=== PATIENT | male | born 1950 | race Caucasian/White ===

== ENCOUNTER → 2017-03-06 | Outpatient (CLI) | payer MEDICARE ==
[2017-03-06 13:02] LABS: Rheumatoid Factor, Qnt <9 IU/mL (<12)
[2017-03-06 16:14] LABS: Treponemal Ab Non-Reactive (Non-Reactive)
[2017-03-06 17:18] LABS: ANA w/Reflex to Titer NEGATIVE (NEGATIVE)
[2017-03-07 03:33] LABS: Lyme Antibodies Total(IgG/IgM) 0.06 (<0.90)
== END | disposition home or self-care (01) ==
LOC: LABWHC1 11:13
PROVIDERS: ATTEND Otolaryngology
DX: L65.9 Nonscarring hair loss, unspecified (principal); R53.83 Other fatigue
CPT/HCPCS: 36415; 82164; 84443; 86038; 86431; 86618; 86780

== ENCOUNTER → 2017-03-19 | Outpatient (CLI) | payer MEDICARE ==
[2017-03-19 07:17] LABS: Non-African American GFR(MDRD) 53 (>60 ml/min/1.73 sqM)
--- NOTE | 2017-03-19 08:57 | MR ---
EXAMINATION TYPE: MR brain and iac wo/w con DATE OF EXAM: 03/19/2017 7:58 AM COMPARISON: NONE HISTORY: Hearing loss TECHNIQUE: Multiplanar and multispin-echo imaging of the brain was performed both before and after the administr ation of contrast. High-resolution images are obtained of the internal auditory canals performed uti lizing 18 mL intravenous MultiHance contrast. The ventricles, basal cisterns and sulci overlying the cerebral convexities are within normal limits. There is no evidence for midline shift or mass effect. Acute intracranial hemorrhage or extra-axial collection is not evident. Nonenhancing cystic lesion high left frontal lobe measuring 6.6 mm. High-resolution imaging of the internal auditory canals fails demonstrate evidence for an enhancing a coustic schwannoma or cerebellopontine cistern angle mass. Following contrast administration, there is no evidence for pathologic enhancement or enhancing mass. Chronic paranasal sinusitis. Mastoid air cells are well-aerated. IMPRESSION: 1. No evidence of acoustic schwannoma or cerebellopontine angle mass.
== END | disposition home or self-care (01) ==
LOC: RADMRIMAIN 06:42
PROVIDERS: ATTEND Otolaryngology
DX: H93.3X9 Disorders of unspecified acoustic nerve (principal); H91.90 Unspecified hearing loss, unspecified ear
CPT/HCPCS: 82565; 70553; A9577

== ENCOUNTER → 2017-07-27 | Outpatient (CLI) | payer MEDICARE ==
[2017-07-27 09:09] LABS: Basophils % (A) 1 %; CH 32.3; CHCM 34.6; Eosinophils # (A) 0.2 k/uL (0-0.7); Eosinophils % (A) 4 %; HDW 2.75; HGB 15.8 gm/dL (13.0-17.5); Luc # (Auto) 0.14; Luc % (Auto) 3; Lymphocytes # (A) 1.6 k/uL (1.0-4.8); Lymphocytes % (A) 30 %; MCH 30.8 pg (25.0-35.0); MCHC 32.9 g/dL (31.0-37.0); MCV 93.5 fL (80.0-100.0); Mean Platelet Volume 7.8; Monocytes # (A) 0.4 k/uL (0-1.0); Monocytes % (A) 7 %; Neutrophils % (A) 56 %; RBC 5.13 m/uL (4.30-5.90); RDW 13.8 % (11.5-15.5); WBC 5.4 k/uL (3.8-10.6); WBC (Perox) 5.18
[2017-07-27 09:38] LABS: ALT 46 U/L (21-72); AST 28 U/L (17-59); Alkaline Phosphatase 43 U/L (38-126); Anion Gap 12 mmol/L; Blood Urea Nitrogen 22 mg/dL (9-20); Calcium 9.3 mg/dL (8.4-10.2); Carbon Dioxide 22 mmol/L (22-30); Chloride 107 mmol/L (98-107); Cholesterol 161 mg/dL (<200); Glucose 146 mg/dL (74-99); HDL Cholesterol 43 mg/dL (40-60); Non-African American GFR(MDRD) 55 (>60 ml/min/1.73 sqM); Potassium 4.6 mmol/L (3.5-5.1); Sodium 141 mmol/L (137-145); Total Bilirubin 0.8 mg/dL (0.2-1.3); Total Protein 7.1 g/dL (6.3-8.2)
== END | disposition home or self-care (01) ==
LOC: LABWHC1 08:30
PROVIDERS: ATTEND Internal Medicine
DX: E78.2 Mixed hyperlipidemia (principal); I10 Essential (primary) hypertension; Z12.5 Encounter for screening for malignant neoplasm of prostate
CPT/HCPCS: 80061; 80053; 85025; 36415; G0103

== ENCOUNTER → 2018-03-01 | Outpatient (CLI) | payer MEDICARE ==
--- NOTE | 2018-03-01 12:56 | US ---
EXAMINATION TYPE: US venous doppler duplex UE RT DATE OF EXAM: 03/01/2018 COMPARISON: NONE CLINICAL HISTORY: R22.31 SWELLING OF RT UPPER LIMB. rt hand numbness, no previous dvt SIDE PERFORMED: right Results called to Ilda in the office at the time of the exam. Right Arm: Negative for DVT Grayscale, color doppler, spectral doppler imaging performed of the deep veins of the right upper ext remity. There is normal flow, compressibility and vascular waveforms. IMPRESSION: No sonographic evidence of deep venous thrombosis within the right upper extremity.
== END | disposition home or self-care (01) ==
LOC: RADUSWWP 11:37
PROVIDERS: ATTEND Internal Medicine
DX: R22.31 Localized swelling, mass and lump, right upper limb (principal)

== ENCOUNTER → 2018-03-22 | Outpatient (CLI) | payer MEDICARE ==
[2018-03-22 10:56] LABS: Appearance,Urine Clear (Clear); Basophils % (A) 1 %; Bilirubin,Urine Negative (Negative); Blood,Urine Negative (Negative); Color,Urine Yellow; Eosinophils # (A) 0.2 k/uL (0-0.7); Eosinophils % (A) 2 %; Glucose,Urine (UA) Negative (Negative); HCT 41.3 % (39.0-53.0); HGB 14.1 gm/dL (13.0-17.5); Ketones,Urine Negative (Negative); Leukocyte Esterase,Urine Negative (Negative); Lymphocytes # (A) 1.4 k/uL (1.0-4.8); Lymphocytes % (A) 16 %; MCH 30.5 pg (25.0-35.0); MCHC 34.2 g/dL (31.0-37.0); MCV 89.2 fL (80.0-100.0); Mean Platelet Volume 7.1; Monocytes # (A) 0.5 k/uL (0-1.0); Monocytes % (A) 6 %; Neutrophils # (A) 6.5 k/uL (1.3-7.7); Neutrophils % (A) 75 %; Nitrite,Urine Negative (Negative); PH, Urine 5.5 (5.0-8.0); Platelet Count 199 k/uL (150-450); Protein,Urine Negative (Negative); RBC 4.63 m/uL (4.30-5.90); RDW 13.3 % (11.5-15.5); Specific Gravity,Urine 1.015 (1.001-1.035); Urobilinogen,Urine <2.0 mg/dL (<2.0); WBC 8.7 k/uL (3.8-10.6)
[2018-03-22 11:17] LABS: C Reactive Protein 58.2 mg/L (<10.0); Calcium 9.4 mg/dL (8.4-10.2); Phosphorus 3.6 mg/dL (2.5-4.5); Potassium 4.4 mmol/L (3.5-5.1); Total Bilirubin 0.6 mg/dL (0.2-1.3); Total Protein 6.7 g/dL (6.3-8.2)
[2018-03-22 11:31] LABS: T4, Free (Free Thyroxine) 0.99 ng/dL (0.78-2.19)
[2018-03-22 13:04] LABS: Erythrocyte Sedimentation Rate 69 mm/hr (0-15)
[2018-03-22 16:17] LABS: Rheumatoid Factor 8 IU/mL (0-15); Streptolysin O Ab(ASO) 84 IU/mL (0-200)
[2018-03-22 16:25] LABS: Parathyroid Hormone Intact 31.4 pg/mL (14.0-72.0)
[2018-03-22 16:26] LABS: Vitamin D 25 Hydroxy 35.2 ng/mL (30.0-100.0)
[2018-03-22 17:03] LABS: Hepatitis C IgG Antibody Non-Reactive (Non-Reactive)
[2018-03-22 17:31] LABS: Cyclic Citrullinated Pep IgG NEGATIVE (NEGATIVE)
[2018-03-22 18:42] LABS: Hemoglobin A1C 6.4 % (4.0-6.0)
[2018-03-23 06:12] LABS: Angiotensin-1 Converting Enz. 15 U/L (8-52)
[2018-03-23 13:45] LABS: HLA B27 NEGATIVE
[2018-03-25 11:10] LABS: Albumin 3.75 g/dL (3.80-4.90); Gamma Globulin 0.92 g/dL (0.70-1.50); Protein, Total 6.8 g/dL (6.2-8.2)
[2018-03-25 15:21] LABS: Hepatits C Virus RNA Not detected (Not detected); Hepatits C Virus RNA, Quant <12 IU/mL (<12); LOG HCV IU/mL <1.08 (<1.08)
[2018-03-25 17:43] LABS: Vitamin D, 1, 25-Dihydroxy 60 pg/mL (20 - 79)
[2018-03-26 07:57] LABS: Vitamin B1 76 ug/L (38-122)
[2018-03-26 09:47] LABS: Lyme IgG/IgM 0.1 Index
== END | disposition home or self-care (01) ==
LOC: LABWHC1 09:59
PROVIDERS: ATTEND Physical Medicine & Rehabilitation
DX: M51.26 Other intervertebral disc displacement, lumbar region (principal); M51.17 Intervertebral disc disorders with radiculopathy, lumbosacral region; M47.817 Spondylosis without myelopathy or radiculopathy, lumbosacral region; M16.11 Unilateral primary osteoarthritis, right hip; M54.2 Cervicalgia; M25.511 Pain in right shoulder; M25.512 Pain in left shoulder
CPT/HCPCS: 36415; 80053; 81003; 82164; 82306; 82310; 82550; 82553; 82607; 82652; 83036; 83516; 83615; 83970; 84100; 84165; 84207; 84425; 84439; 84443; 84550; 85025; 85652; 86038; 86060; 86140; 86200; 86235; 86431; 86618; 86803; 86812; 87522

== ENCOUNTER 2018-05-13 15:18 | Inpatient (IN) | payer MEDICARE ==
[2018-05-13] MEDS ORDERED: SODIUM CHLORIDE 0.9% 1,000 ML IV STA (16:56)
[2018-05-13] MEDS ORDERED: SODIUM CHLORIDE 0.9% 500 ML IV STA ×2 (16:56→18:36)
[2018-05-13 17:14] LABS: Basophils % (A) 0 %; Eosinophils % (A) 0 %; HCT 48.8 % (39.0-53.0); HGB 15.5 gm/dL (13.0-17.5); Lymphocytes # (A) 0.8 k/uL (1.0-4.8); Lymphocytes % (A) 7 %; MCH 28.5 pg (25.0-35.0); MCHC 31.8 g/dL (31.0-37.0); MCV 89.5 fL (80.0-100.0); Mean Platelet Volume 7.9; Monocytes # (A) 0.4 k/uL (0-1.0); Monocytes % (A) 4 %; Neutrophils # (A) 9.9 k/uL (1.3-7.7); Neutrophils % (A) 88 %; Platelet Count 240 k/uL (150-450); RBC 5.46 m/uL (4.30-5.90); RDW 14.4 % (11.5-15.5); WBC 11.2 k/uL (3.8-10.6)
--- NOTE | 2018-05-13 17:22 | ED ---
General Adult HPI - General Chief complaint: Recheck/Abnormal Lab/Rx Stated complaint: High blood sugar-sent by Time Seen by Provider: 05/13/18 16:39 Source: family, RN notes reviewed, old records reviewed Mode of arrival: ambulatory Limitations: no limitations - History of Present Illness Initial comments: This is a 60-year-old male the ER for evaluation today. States presenting for evaluation regards to significantly abnormal lab tests. Significantly elevated blood sugar. Patient has no real significant medical history aside from high blood pressure. Recently diagnosed with myalgia and arthralgia probably myalgia. Patient is had decreased strength decreased activity level. Patient' s been on outpatient steroids for about 3 weeks now. Per symptoms, his pain did improve but his blood sugar is not significantly clinically elevated. Patient continues to feel weak and very thirsty - Related Data Home Medications Medication Instructions Recorded Confirmed Aspirin EC [Ecotrin Low Dose] 81 mg PO DAILY 05/13/18 05/13/18 Gabapentin (Unknown Dose) 1 tab PO DAILY 05/13/18 Losartan (Unknown Dose) 1 tab PO DAILY 05/13/18 predniSONE See Taper PO DIRECTED 05/13/18 05/13/18 Allergies Allergy/AdvReac Type Severity Reaction Status Date / Time Sulfa (Sulfonamide Allergy Rash/Hives Verified 05/13/18 17:44 Antibiotics) Review of Systems ROS Statement: Those systems with pertinent positive or pertinent negative responses have been documented in the HPI. ROS Other: All systems not noted in ROS Statement are negative. Past Medical History Past Medical History: Hypertension History of Any Multi-Drug Resistant Organisms: None Reported Past Surgical History: No Surgical Hx Reported Past Psychological History: No Psychological Hx Reported Smoking Status: Never smoker Past Alcohol Use History: None Reported Past Drug Use History: None Reported General Exam Limitations: no limitations General appearance: alert, in no apparent distress Head exam: Present: atraumatic, normocephalic, normal inspection Eye exam: Present: normal appearance, PERRL, EOMI. Absent: scleral icterus, conjunctival injection, periorbital swelling ENT exam: Present: normal exam, mucous membranes moist Neck exam: Present: normal inspection. Absent: tenderness, meningismus, lymphadenopathy Respiratory exam: Present: normal lung sounds bilaterally. Absent: respiratory distress, wheezes, rales, rhonchi, stridor Cardiovascular Exam: Present: regular rate, normal rhythm, normal heart sounds. Absent: systolic murmur, diastolic murmur, rubs, gallop, clicks GI/Abdominal exam: Present: soft, normal bowel sounds. Absent: distended, tenderness, guarding, rebound, rigid Extremities exam: Present: normal inspection, full ROM, normal capillary refill. Absent: tenderness, pedal edema, joint swelling, calf tenderness Back exam: Present: normal inspection Neurological exam: Present: alert, oriented X3, CN II-XII intact Psychiatric exam: Present: normal affect, normal mood Skin exam: Present: warm, dry, intact, normal color. Absent: rash Course Vital Signs 05/13/18 16:00 Temperature 97.8 F Pulse Rate 96 Respiratory 18 Rate Blood Pressure 96/64 O2 Sat by Pulse 98 Oximetry - Reevaluation(s) Reevaluation #1: 05/13/18 17:57 Medical record and prior lab values are reviewed EKG Findings - EKG Comments: EKG Findings:: EKG shows normal sinus rhythm rate of 74, MA 136, QRS 86, QTc 432 Medical Decision Making - Medical Decision Making 68 male the ER for evaluation of weakness, patient's found to be significantly dehydrated with elevated blood sugar. Patient be admitted for rehydration evaluation of hyperglycemia and treatment, patient also continue to have treatment of high blood sugar, patient currently on steroids for treatment of polymyalgia arthralgia - Lab Data Result diagrams: 05/13/18 17:03 05/13/18 17:03 Lab Results 05/13/18 05/13/18 05/13/18 Range/Units 17:03 17:03 17:03 WBC 11.2 H (3.8-10.6) k/uL RBC 5.46 (4.30-5.90) m/uL Hgb 15.5 (13.0-17.5) gm/dL Hct 48.8 (39.0-53.0) % MCV 89.5 (80.0-100.0) fL MCH 28.5 (25.0-35.0) pg MCHC 31.8 (31.0-37.0) g/dL RDW 14.4 (11.5-15.5) % Plt Count 240 (150-450) k/uL Neutrophils % 88 % Lymphocytes % 7 % Monocytes % 4 % Eosinophils % 0 % Basophils % 0 % Neutrophils # 9.9 H (1.3-7.7) k/uL Lymphocytes # 0.8 L (1.0-4.8) k/uL Monocytes # 0.4 (0-1.0) k/uL Eosinophils # 0.0 (0-0.7) k/uL Basophils # 0.0 (0-0.2) k/uL Sodium 131 L (137-145) mmol/L Potassium 5.8 H (3.5-5.1) mmol/L Chloride 92 L (98-107) mmol/L Carbon Dioxide 20 L (22-30) mmol/L Anion Gap 19 mmol/L BUN 42 H (9-20) mg/dL Creatinine 1.54 H (0.66-1.25) mg/dL Est GFR (CKD-EPI)AfAm 53 (>60 ml/min/1.73 sqM) Est GFR (CKD-EPI)NonAf 46 (>60 ml/min/1.73 sqM) Glucose 679 H* (74-99) mg/dL Calcium 9.6 (8.4-10.2) mg/dL Phosphorus 4.8 H (2.5-4.5) mg/dL Magnesium 2.5 H (1.6-2.3) mg/dL Total Bilirubin 1.0 (0.2-1.3) mg/dL AST 14 L (17-59) U/L ALT 43 (21-72) U/L Alkaline Phosphatase 57 (38-126) U/L Total Creatine Kinase (55-170) U/L CK-MB (CK-2) (0.0-2.4) ng/mL CK-MB (CK-2) Rel Index Troponin I (0.000-0.034) ng/mL C-Reactive Protein 19.3 H (<10.0) mg/L Total Protein 5.9 L (6.3-8.2) g/dL Albumin 3.7 (3.5-5.0) g/dL TSH 1.960 (0.465-4.680) mIU/L Acetone, Qual Positive (Negative) 05/13/18 Range/Units 17:03 WBC (3.8-10.6) k/uL RBC (4.30-5.90) m/uL Hgb (13.0-17.5) gm/dL Hct (39.0-53.0) % MCV (80.0-100.0) fL MCH (25.0-35.0) pg MCHC (31.0-37.0) g/dL RDW (11.5-15.5) % Plt Count (150-450) k/uL Neutrophils % % Lymphocytes % % Monocytes % % Eosinophils % % Basophils % % Neutrophils # (1.3-7.7) k/uL Lymphocytes # (1.0-4.8) k/uL Monocytes # (0-1.0) k/uL Eosinophils # (0-0.7) k/uL Basophils # (0-0.2) k/uL Sodium (137-145) mmol/L Potassium (3.5-5.1) mmol/L Chloride (98-107) mmol/L Carbon Dioxide (22-30) mmol/L Anion Gap mmol/L BUN (9-20) mg/dL Creatinine (0.66-1.25) mg/dL Est GFR (CKD-EPI)AfAm (>60 ml/min/1.73 sqM) Est GFR (CKD-EPI)NonAf (>60 ml/min/1.73 sqM) Glucose (74-99) mg/dL Calcium (8.4-10.2) mg/dL Phosphorus (2.5-4.5) mg/dL Magnesium (1.6-2.3) mg/dL Total Bilirubin (0.2-1.3) mg/dL AST (17-59) U/L ALT (21-72) U/L Alkaline Phosphatase (38-126) U/L Total Creatine Kinase 34 L (55-170) U/L CK-MB (CK-2) 1.5 (0.0-2.4) ng/mL CK-MB (CK-2) Rel Index 4.4 Troponin I <0.012 (0.000-0.034) ng/mL C-Reactive Protein (<10.0) mg/L Total Protein (6.3-8.2) g/dL Albumin (3.5-5.0) g/dL TSH (0.465-4.680) mIU/L Acetone, Qual (Negative) Disposition Clinical Impression: Hyperglycemia, Weakness, Polyarthralgia Disposition: ADMITTED IP TO THIS [facility] Condition: Good Is patient prescribed a controlled substance at d/c from ED?: No Referrals: Andrew Grimes MD [Primary Care Provider] - 1-2 days
[2018-05-13 17:24] LABS: ALT 43 U/L (21-72); AST 14 U/L (17-59); Albumin 3.7 g/dL (3.5-5.0); Alkaline Phosphatase 57 U/L (38-126); Anion Gap 19 mmol/L; Blood Urea Nitrogen 42 mg/dL (9-20); Calcium 9.6 mg/dL (8.4-10.2); Carbon Dioxide 20 mmol/L (22-30); Chloride 92 mmol/L (98-107); Magnesium 2.5 mg/dL (1.6-2.3); Phosphorus 4.8 mg/dL (2.5-4.5); Potassium 5.8 mmol/L (3.5-5.1); Sodium 131 mmol/L (137-145); Total Protein 5.9 g/dL (6.3-8.2)
[2018-05-13 17:35] LABS: Glucose 679 mg/dL (74-99)
[2018-05-13 17:57] LABS: C Reactive Protein 19.3 mg/L (<10.0)
[2018-05-13 17:58] LABS: Creatine Kinase 34 U/L (55-170)
[2018-05-13 18:11] LABS: Creatine Kinase MB 1.5 ng/mL (0.0-2.4); Troponin I <0.012 ng/mL (0.000-0.034)
[2018-05-13] MEDS ORDERED: INSULIN REGULAR 100 UNIT/ML VIAL SQ ONE (18:36)
[2018-05-13] MEDS ORDERED: INSULIN REGULAR 100 UNIT/ML VIAL IV ONE (18:36)
[2018-05-13] MEDS ORDERED: SODIUM CHLORIDE 0.9% 1,000 ML IV ONE (18:36)
[2018-05-13 19:19] LABS: Appearance,Urine Clear (Clear); Bilirubin,Urine Negative (Negative); Blood,Urine Negative (Negative); Color,Urine Colorless; Glucose,Urine (UA) 4+ (Negative); Leukocyte Esterase,Urine Negative (Negative); Nitrite,Urine Negative (Negative); Protein,Urine Negative (Negative); Specific Gravity,Urine 1.023 (1.001-1.035); Urobilinogen,Urine <2.0 mg/dL (<2.0)
[2018-05-13 19:24] LABS: Glucose,Whole Blood 483 mg/dL (75-99)
[2018-05-13 19:36] VITALS: BMI 26.7
[2018-05-13 19:38] LABS: Ketones,Urine 2+ (Negative)
[2018-05-13] MEDS ORDERED: Potassium Replacement Protocol 1 EACH MISC MISCELLANE PRN (20:10)
[2018-05-13] MEDS ORDERED: Magnesium Replacement Protocol 1 EACH MISC MISCELLANE PRN (20:10)
[2018-05-13] MEDS ORDERED: INSULIN REGULAR BOLUS (FROM DRIP BAG) IV ONE (20:10)
[2018-05-13] MEDS ORDERED: NALOXONE 0.4 MG/ML 1 ML VIAL IV PRN (20:14)
[2018-05-13 20:24] LABS: Glucose,Whole Blood 505 mg/dL (75-99)
--- NOTE | 2018-05-13 20:47 | P.HPIM ---
History of Present Illness H&P Date: 05/13/18 Chief Complaint: Generalized weakness, polydipsia , polyuria 68-year-old male with past medical history of hypertension. Patient presented to the hospital due to 3 weeks history of generalized weakness , fatigue, polydipsia and polyuria. Patient denies any history of diabetes mellitus. However he's been struggling with stiff shoulder and joint pain. He's been receiving steroid shots in his joints. And due to poor outcomes his doctor has started him on prednisone 5 weeks ago. He was on 30 mg daily for 2 weeks and then dropped to 25 mg daily for 2 weeks and currently for the past few days he is on 20 mg daily. It seems like his symptoms correlates with the starting of prednisone. Today he was following up with his primary care physician who up on doing further testing found to have elevated blood sugar around 800 and recommended that he goes to the hospital to the emergency department for further management. Patient otherwise denies any vomiting fevers or chills headache changes in his vision or hearing denies any chest pain or trouble breathing denies any abdominal pain changes in his bowel habits or urinary habits. But he does feel nauseated most of the time. He's been drinking a lot of water to keep hydrated. In the emergency department she was found to have elevated blood sugar with anion gap and ketones in the urine but his bicarb was only mildly acidotic at around 20. Patient admitted for further care Review of Systems Pertinent positives as noted in HPI. All other systems were reviewed and are negative Patient denies any symptoms suggestive of acute infection Past Medical History Past Medical History: Hypertension Additional Past Medical History / Comment(s): Arthritis History of Any Multi-Drug Resistant Organisms: None Reported Past Surgical History: No Surgical Hx Reported Past Psychological History: No Psychological Hx Reported Smoking Status: Never smoker Past Alcohol Use History: None Reported Past Drug Use History: None Reported - Past Family History Family Additional Family Medical History / Comment(s): Patient is adopted and doesn't know his family history Medications and Allergies Home Medications Medication Instructions Recorded Confirmed Type Aspirin EC [Ecotrin Low Dose] 81 mg PO DAILY 05/13/18 05/13/18 History Gabapentin (Unknown Dose) 1 tab PO DAILY 05/13/18 History Losartan (Unknown Dose) 1 tab PO DAILY 05/13/18 History predniSONE See Taper PO DIRECTED 05/13/18 05/13/18 History Allergies Allergy/AdvReac Type Severity Reaction Status Date / Time Sulfa (Sulfonamide Allergy Rash/Hives Verified 05/13/18 17:44 Antibiotics) Physical Exam Vitals: Vital Signs Temp Pulse Pulse Resp BP BP Pulse Ox 05/13/18 19:24 97.4 F L 70 18 163/72 97 05/13/18 19:14 97.9 F 05/13/18 19:03 56 L 18 158/75 99 05/13/18 16:00 97.8 F 96 18 96/64 98 Intake and Output 05/13/18 05/13/18 05/13/18 06:59 14:59 22:59 Other: Weight 73 kg Constitutional: No acute distress, conversant, pleasant Eyes: Anicteric sclerae, moist conjunctiva, no lid-lag Pupils equal round reactive to light ENMT: NC/AT Oropharynx clear, no erythema, or exudates Neck: Supple, FROM, no masses, or JVD No carotid bruits No thyromegaly Lungs: Clear to auscultation Clear to percussion Normal respiratory effort, no accessory muscle use Cardiovascular: Heart regular in rate and rhythm, No murmurs, gallops, or rubs No peripheral edema Abdominal: Soft Nontender, no guarding, rebound or rigidity Abdomen moving with respiration Normoactive bowel sounds No hepatomegaly, No splenomegaly No palpable mass No abdominal wall hernia noted Skin: Normal temperature, tone, texture, turgor No induration No subcutaneous nodules No rash, lesions No ulcers Extremities: No digital cyanosis No clubbing Pedal pulses intact and symmetrical Radial pulses intact and symmetrical No calf tenderness Psychiatric: Alert and oriented to person, place and time Appropriate affect fair judgment Neuro Muscles Strength 5/5 in all 4 extremities Sensation to light touch grossly present throughout Cranial nerves II-XII grossly intact No focal sensory deficits Lymphatics: no palpable cervical or supraclavicular , or inguinal lymph nodes Results CBC & Chem 7: 05/13/18 17:03 05/13/18 17:03 Labs: Abnormal Lab Results - Last 24 Hours (Table) 05/13/18 05/13/18 05/13/18 Range/Units 17:03 17:03 17:03 WBC 11.2 H (3.8-10.6) k/uL Neutrophils # 9.9 H (1.3-7.7) k/uL Lymphocytes # 0.8 L (1.0-4.8) k/uL Sodium 131 L (137-145) mmol/L Potassium 5.8 H (3.5-5.1) mmol/L Chloride 92 L (98-107) mmol/L Carbon Dioxide 20 L (22-30) mmol/L BUN 42 H (9-20) mg/dL Creatinine 1.54 H (0.66-1.25) mg/dL Glucose 679 H* (74-99) mg/dL POC Glucose (mg/dL) (75-99) mg/dL Phosphorus 4.8 H (2.5-4.5) mg/dL Magnesium 2.5 H (1.6-2.3) mg/dL AST 14 L (17-59) U/L Total Creatine Kinase (55-170) U/L C-Reactive Protein 19.3 H (<10.0) mg/L Total Protein 5.9 L (6.3-8.2) g/dL Urine Glucose (UA) (Negative) Urine Ketones (Negative) 05/13/18 05/13/18 05/13/18 Range/Units 17:03 19:07 19:21 WBC (3.8-10.6) k/uL Neutrophils # (1.3-7.7) k/uL Lymphocytes # (1.0-4.8) k/uL Sodium (137-145) mmol/L Potassium (3.5-5.1) mmol/L Chloride (98-107) mmol/L Carbon Dioxide (22-30) mmol/L BUN (9-20) mg/dL Creatinine (0.66-1.25) mg/dL Glucose (74-99) mg/dL POC Glucose (mg/dL) 483 H (75-99) mg/dL Phosphorus (2.5-4.5) mg/dL Magnesium (1.6-2.3) mg/dL AST (17-59) U/L Total Creatine Kinase 34 L (55-170) U/L C-Reactive Protein (<10.0) mg/L Total Protein (6.3-8.2) g/dL Urine Glucose (UA) 4+ H (Negative) Urine Ketones 2+ H (Negative) Thrombosis Risk Factor Assmnt - Choose All That Apply Each Risk Factor Represents 2 Points: Age 61-74 years Thrombosis Risk Factor Assessment Total Risk Factor Score: 2 Thrombosis Risk Factor Assessment Level: Low Risk Assessment and Plan Assessment: 68-year-old male with history of hypertension and recently diagnosed with arthritis. Patient admitted as an inpatient with anticipated length of stay of more than 48 hours for mild DKA, patient does not have history of diabetes however he was started on high doses of prednisone over the past 5 weeks and his symptoms of polydipsia and polyuria and fatigue has started around 3 weeks ago. He was found to have elevated blood sugar with mild acidosis bicarb of 20 and positive anion gap and ketones in the urine and admitted for further care this is thought to be due to the high-dose of steroid that he is taking. He was also found to be in ORMIE due to dehydration from elevated blood sugars. A1c will be evaluated patient will need close follow-up to rule out diabetes as an outpatient as his symptoms probably suggestive of borderline to fully blown diabetes which was exacerbated by the addition of steroids. 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 insulin drip DKA pathway NPO IVF hydration diabetic education check A1C Bicarb is 20 follow up on anion gap which is positive no evidence of acute infection ROMIE non oliguric secondary to dehydration from hyperglycemia avoid nephrotoxic meds hold losartan IVF hydration follow up renal function hypertension controlled hold losartan for now due to ROMIE Arthritis on prednisone continue prednisone currently on 20 mg daily rheumatology consult DVT PPX, on heparin sc tid will evaluate for availability of beds in selective unit , however patient acidosis is very mild and i anticipate AGAP closure in few hours , will continue to assess, bed coordinator notified for possible transfer if anion gap does not close upon repeating labs. Surrogate decision-maker: patient Kim CODE STATUS:full code Discussed with: Patient, ER, RN Anticipated discharge: 48-[address]: home A total of 60 minutes was spent on the care of this complex patient more than 50 % of the time was spent in counseling and care coordination.
[2018-05-13 20:59] LABS: Glucose,Whole Blood 421 mg/dL (75-99)
[2018-05-13] MEDS ORDERED: INSULIN REGULAR 100 UNIT in SODIUM CHLORIDE 0.9% 100 ML IV SCH (21:00)
[2018-05-13] MEDS: SODIUM CHLORIDE 0.9% 1,000 ML IV SCH (21:15)
[2018-05-13 22:00] LABS: Glucose,Whole Blood 287 mg/dL (75-99)
[2018-05-13 22:31] LABS: Glucose,Whole Blood 192 mg/dL (75-99)
[2018-05-13] MEDS: D5-0.45% NACL WITH KCL 20MEQ/L 1,000 ML IV SCH (22:34)
[2018-05-13] MEDS: HEPARIN SODIUM,PORCINE 5,000 UNIT/ML 1 ML VIAL SQ SCH (23:25)
[2018-05-13 23:59] LABS: Glucose,Whole Blood 158 mg/dL (75-99)
[2018-05-14 00:41] LABS: Phosphorus 2.3 mg/dL (2.5-4.5); Potassium 4.5 mmol/L (3.5-5.1)
[2018-05-14 01:54] LABS: Glucose,Whole Blood 189 mg/dL (75-99)
[2018-05-14 04:10] LABS: Phosphorus 2.5 mg/dL (2.5-4.5); Potassium 4.7 mmol/L (3.5-5.1)
[2018-05-14] MEDS: SODIUM CHLORIDE 0.9% 1,000 ML IV SCH ×2 (04:12→05:13)
[2018-05-14 04:31] LABS: Glucose,Whole Blood 193 mg/dL (75-99)
[2018-05-14] MEDS: D5-0.45% NACL WITH KCL 20MEQ/L 1,000 ML IV SCH (05:12)
[2018-05-14 06:34] LABS: Glucose,Whole Blood 203 mg/dL (75-99)
[2018-05-14 07:49] LABS: Glucose,Whole Blood 196 mg/dL (75-99)
--- NOTE | 2018-05-14 07:59 | P.PN ---
Subjective Progress Note Date: 05/14/18 Principal diagnosis: Patient is a 68-year-old male for past medical history of hypertension , and recently diagnosed arthritis which sounds like polymyalgia rheumatica who was started on prednisone therapy 5 weeks ago by his primary care physician. He then developed polyuria and polydipsia and fatigue and was found to have elevated blood sugars. He was feeling worse and presented to the ER. In the ER he was found to have hyponatremia, hyperkalemia, anion gap acidosis, acute kidney injury, and a glucose of 679. He was started on IV fluids and subcutaneous insulin. He was admitted to the general medical floor. He was subsequently diagnosed with DKA as he had a positive urine acetone. He was transitioned to insulin drip. His anion gap had closed 2 by the morning of and he was transitioned off of this on. He has no history of diabetes. He is adopted and does not know if there is a family history of diabetes. Patient seen and examined at bedside. He states he is feeling fatigued today. Denies any nausea, abdominal pain, or vomiting. No chest pain or shortness of breath. He has not been checking his blood sugar at home. History of diabetes. We discussed that he may need to continue on insulin therapy at home while he is receiving steroids for his arthritis. He states he does have a clara planned out with Dr. Grimes his calendar at home, refills to take each day. Objective - Vital Signs Vital signs: Vital Signs Temp 98.7 F 05/14/18 06:21 Pulse 72 05/14/18 06:21 Resp 17 05/14/18 06:21 BP 127/70 05/14/18 06:21 Pulse Ox 96 05/14/18 06:21 Intake & Output 05/13/18 05/14/18 05/14/18 18:59 06:59 18:59 Intake Total 52.041 Balance 52.041 Weight 73 kg Intake: Intake, IV Titration 52.041 Amount Insulin Regular 100 unit 52.041 In Sodium Chloride 0.9% 100 ml @ 0.1 UNITS/KG/HR 7.37 mls/hr IV .[id number] POLA Rx#:[id number] Other: Voiding Method Toilet # Voids 1 - Exam General: non toxic, no distress, appears at stated age Derm: warm, dry Head: atraumatic, normocephalic, symmetric Eyes: EOMI, no lid lag, anicteric sclera Mouth: no lip lesion, mucous membranes dry Cardiovascular: S1S2 reg, no murmur, positive posterior tibial pulse bilateral, Lungs: CTA bilateral, no rhonchi, no rales , no accessory muscle use Abdominal: soft, nontender to palpation, no guarding, no appreciable organomegaly Ext: no gross muscle atrophy, no edema, no contractures Neuro: CN II-XI grossly intact, no focal neuro deficits Psych: Alert, oriented, appropriate affect - Labs CBC & Chem 7: 05/13/18 17:03 05/14/18 03:40 Labs: Abnormal Lab Results - Last 24 Hours (Table) 05/13/18 05/13/18 05/13/18 Range/Units 17:03 17: 17:03 WBC 11.2 H (3.8-10.6) k/uL Neutrophils # 9.9 H (1.3-7.7) k/uL Lymphocytes # 0.8 L (1.0-4.8) k/uL Sodium 131 L (137-145) mmol/L Potassium 5.8 H (3.5-5.1) mmol/L Chloride 92 L (98-107) mmol/L Carbon Dioxide 20 L (22-30) mmol/L BUN 42 H (9-20) mg/dL Creatinine 1.54 H (0.66-1.25) mg/dL Glucose 679 H* (74-99) mg/dL POC Glucose (mg/dL) (75-99) mg/dL Phosphorus 4.8 H (2.5-4.5) mg/dL Magnesium 2.5 H (1.6-2.3) mg/dL AST 14 L (17-59) U/L Total Creatine Kinase (55-170) U/L C-Reactive Protein 19.3 H (<10.0) mg/L Total Protein 5.9 L (6.3-8.2) g/dL Urine Glucose (UA) (Negative) Urine Ketones (Negative) 05/13/18 05/13/18 05/13/18 Range/Units 17:03 19:07 19:21 WBC (3.8-10.6) k/uL Neutrophils # (1.3-7.7) k/uL Lymphocytes # (1.0-4.8) k/uL Sodium (137-145) mmol/L Potassium (3.5-5.1) mmol/L Chloride (98-107) mmol/L Carbon Dioxide (22-30) mmol/L BUN (9-20) mg/dL Creatinine (0.66-1.25) mg/dL Glucose (74-99) mg/dL POC Glucose (mg/dL) 483 H (75-99) mg/dL Phosphorus (2.5-4.5) mg/dL Magnesium (1.6-2.3) mg/dL AST (17-59) U/L Total Creatine Kinase 34 L (55-170) U/L C-Reactive Protein (<10.0) mg/L Total Protein (6.3-8.2) g/dL Urine Glucose (UA) 4+ H (Negative) Urine Ketones 2+ H (Negative) 05/13/18 05/13/18 05/13/18 Range/Units 19:51 20:57 21:59 WBC (3.8-10.6) k/uL Neutrophils # (1.3-7.7) k/uL Lymphocytes # (1.0-4.8) k/uL Sodium (137-145) mmol/L Potassium (3.5-5.1) mmol/L Chloride (98-107) mmol/L Carbon Dioxide (22-30) mmol/L BUN (9-20) mg/dL Creatinine (0.66-1.25) mg/dL Glucose (74-99) mg/dL POC Glucose (mg/dL) 505 H 421 H 287 H (75-99) mg/dL Phosphorus (2.5-4.5) mg/dL Magnesium (1.6-2.3) mg/dL AST (17-59) U/L Total Creatine Kinase (55-170) U/L C-Reactive Protein (<10.0) mg/L Total Protein (6.3-8.2) g/dL Urine Glucose (UA) (Negative) Urine Ketones (Negative) 05/13/18 05/13/18 05/14/18 Range/Units 22:30 23:58 00:00 WBC (3.8-10.6) k/uL Neutrophils # (1.3-7.7) k/uL Lymphocytes # (1.0-4.8) k/uL Sodium (137-145) mmol/L Potassium (3.5-5.1) mmol/L Chloride 108 H (98-107) mmol/L Carbon Dioxide (22-30) mmol/L BUN 36 H (9-20) mg/dL Creatinine (0.66-1.25) mg/dL Glucose 166 H (74-99) mg/dL POC Glucose (mg/dL) 192 H 158 H (75-99) mg/dL Phosphorus 2.3 L (2.5-4.5) mg/dL Magnesium (1.6-2.3) mg/dL AST (17-59) U/L Total Creatine Kinase (55-170) U/L C-Reactive Protein (<10.0) mg/L Total Protein (6.3-8.2) g/dL Urine Glucose (UA) (Negative) Urine Ketones (Negative) 05/14/18 05/14/18 05/14/18 Range/Units 01:52 03:40 04:09 WBC (3.8-10.6) k/uL Neutrophils # (1.3-7.7) k/uL Lymphocytes # (1.0-4.8) k/uL Sodium (137-145) mmol/L Potassium (3.5-5.1) mmol/L Chloride (98-107) mmol/L Carbon Dioxide (22-30) mmol/L BUN 36 H (9-20) mg/dL Creatinine (0.66-1.25) mg/dL Glucose 199 H (74-99) mg/dL POC Glucose (mg/dL) 189 H 193 H (75-99) mg/dL Phosphorus (2.5-4.5) mg/dL Magnesium (1.6-2.3) mg/dL AST (17-59) U/L Total Creatine Kinase (55-170) U/L C-Reactive Protein (<10.0) mg/L Total Protein (6.3-8.2) g/dL Urine Glucose (UA) (Negative) Urine Ketones (Negative) 05/14/18 05/14/18 Range/Units 06:32 07:46 WBC (3.8-10.6) k/uL Neutrophils # (1.3-7.7) k/uL Lymphocytes # (1.0-4.8) k/uL Sodium (137-145) mmol/L Potassium (3.5-5.1) mmol/L Chloride (98-107) mmol/L Carbon Dioxide (22-30) mmol/L BUN (9-20) mg/dL Creatinine (0.66-1.25) mg/dL Glucose (74-99) mg/dL POC Glucose (mg/dL) 203 H 196 H (75-99) mg/dL Phosphorus (2.5-4.5) mg/dL Magnesium (1.6-2.3) mg/dL AST (17-59) U/L Total Creatine Kinase (55-170) U/L C-Reactive Protein (<10.0) mg/L Total Protein (6.3-8.2) g/dL Urine Glucose (UA) (Negative) Urine Ketones (Negative) Microbiology - Last 24 Hours (Table) 05/13/18 19:07 Urine Culture - Preliminary Urine,Voided Assessment and Plan Assessment: DKA secondary to hyperglycemia due to medications -off insulin drip -Levemir 20 units morning, sliding scale insulin, await hemoglobin A1c -Transition to normal saline -facility maintenance supervisor and dietitian consultation -Transition Accu-Cheks every before meals and at bedtime. Hypertension, controlled -Resume losartan in a.m. -Follow blood pressures Arthritis with concern for polymyalgia rheumatica patient is currently on prednisone -Continue prednisone 20 mg daily - elevated CRP -Rheumatology consultation Acute kidney injury, resolved Anion gap metabolic acidosis, resolved Hyperkalmiea, resolved Hyponatremia (pseudo), resolved DVT prophylaxis: SCD Discussed with: Patient, nursing Anticipated discharge: 24-[address]: Home A total of 35 minutes was spent on the care of this complex patient more than 50 % of the time was spent in counseling and care coordination.
[2018-05-14] MEDS: HEPARIN SODIUM,PORCINE 5,000 UNIT/ML 1 ML VIAL SQ SCH ×2 (08:31→15:54)
[2018-05-14] MEDS: INSULIN DETEMIR 100 UNIT/ML 10 ML VIAL SQ SCH (08:35)
[2018-05-14 12:08] LABS: Glucose,Whole Blood 300 mg/dL (75-99)
[2018-05-14] MEDS: INSULIN ASPART 100 UNIT/ML 1 ML 10 ML VIAL SQ SCH ×3 (12:47→21:59)
--- NOTE | 2018-05-14 15:09 | P.CONS ---
History of Present Illness - Reason for Consult Consult date: 05/14/18 PMR Requesting physician: Suly Dias - Chief Complaint Weakness, fatigue - History of Present Illness Patient is seen today as an inpatient consult. Patient states he was having increased fatigue and weakness for a few days including weakness in the lower extremity so had a visit with his PCP yesterday, May 13, who checked blood glucose which was in the 800s and was told to come to ER. Patient was found to have positive acetone and elevated blood glucose of 679 and so was admitted for mild DKA although patient has no previous diagnosis of diabetes. Patient also admits to polydipsia and polyuria as well. Patient was also found to have elevated creatinine of 1.54 as well most likely secondary to dehydration. Patient was seen in our office initially on 04/11 and followed up on 04/25. Patient initially presented with shoulder pain and stiffness in the upper extremities and weakness in the lower extremities and patient had elevated sedimentation rate of 77. Patient was started on 30 mg/2 week taper of prednisone. At his follow up, patient discussed feeling better on prednisone and patient had increased movement in the arms and improved strength as well. Patient was going to be re-evaluated after completing prednisone taper with repeat ESR to confirm diagnosis of PMR. It was also discussed that patient may need to be evaluated by neurology for possible ALS. Patient also had degenerative disk disease of the spine and does follow with Dr. Brooks and is on gabapentin 300 mg TID. Review of Systems Constitutional: Reports fatigue Musculoskeletal: Reports muscle weakness Past Medical History Past Medical History: Hypertension Additional Past Medical History / Comment(s): Arthritis History of Any Multi-Drug Resistant Organisms: None Reported Past Surgical History: No Surgical Hx Reported Past Psychological History: No Psychological Hx Reported Smoking Status: Never smoker Past Alcohol Use History: None Reported Past Drug Use History: None Reported - Past Family History Family Additional Family Medical History / Comment(s): Patient is adopted and doesn't know his family history Medications and Allergies Home Medications Medication Instructions Recorded Confirmed Type Aspirin EC [Ecotrin Low Dose] 81 mg PO DAILY 05/13/18 05/14/18 History predniSONE See Taper PO DIRECTED 05/13/18 05/14/18 History Cetirizine HCl [Zyrtec] 10 mg PO HS 05/14/18 05/14/18 History Gabapentin [Neurontin] 400 mg PO TID PRN 05/14/18 05/14/18 History Losartan [Cozaar] 50 mg PO DAILY 05/14/18 05/14/18 History Simvastatin 40 mg PO HS 05/14/18 05/14/18 History Allergies Allergy/AdvReac Type Severity Reaction Status Date / Time Sulfa (Sulfonamide Allergy Rash/Hives Verified 05/13/18 17:44 Antibiotics) Physical Exam Vitals: Vital Signs Temp Pulse Pulse Resp BP BP Pulse Ox 05/14/18 08:04 96 05/14/18 06:21 98.7 F 72 17 127/70 96 05/13/18 23:00 98.4 F 94 18 113/66 96 05/13/18 19:24 97.4 F L 70 18 163/72 97 05/13/18 19:14 97.9 F 05/13/18 19:03 56 L 18 158/75 99 05/13/18 16:00 97.8 F 96 18 96/64 98 Intake and Output 05/14/18 05/14/18 05/14/18 06:59 14:59 22:59 Intake Total 19.541 Balance 19.541 Intake: Intake, IV Titration 19.541 Amount Insulin Regular 100 unit 19.541 In Sodium Chloride 0.9% 100 ml @ 0.1 UNITS/KG/HR 7.37 mls/hr IV .[id number] [facility] Rx#:[id number] Other: Voiding Method Toilet # Voids 1 3 Weight 73 kg Today, patient continues to complain of fatigue. Patient does state that he did go on a trip recently but had to limit his activity because he had issues standing from kneeling position due to weakness in the calves. Patient states that he did feel worsening fatigue in the last few days. On physical exam, patient does continue to have weakness of the calves bilaterally but has good strength of proximal muscles and in the upper extremities. There is no evidence of synovitis. Today I will discontinue patient's prednisone and hopefully this improves patient's hyperglycemia. Patient will follow up in 2 weeks to discuss further plan of care and treatment of PMR if patient's ESR continues to be elevated. Results CBC & Chem 7: 05/13/18 17:03 05/14/18 03:40 Labs: Abnormal Lab Results - Last 24 Hours (Table) 05/13/18 05/13/18 05/13/18 Range/Units 17:03 17:03 17:03 WBC 11.2 H (3.8-10.6) k/uL Neutrophils # 9.9 H (1.3-7.7) k/uL Lymphocytes # 0.8 L (1.0-4.8) k/uL Sodium 131 L (137-145) mmol/L Potassium 5.8 H (3.5-5.1) mmol/L Chloride 92 L (98-107) mmol/L Carbon Dioxide 20 L (22-30) mmol/L BUN 42 H (9-20) mg/dL Creatinine 1.54 H (0.66-1.25) mg/dL Glucose 679 H* (74-99) mg/dL POC Glucose (mg/dL) (75-99) mg/dL Phosphorus 4.8 H (2.5-4.5) mg/dL Magnesium 2.5 H (1.6-2.3) mg/dL AST 14 L (17-59) U/L Total Creatine Kinase (55-170) U/L C-Reactive Protein 19.3 H (<10.0) mg/L Total Protein 5.9 L (6.3-8.2) g/dL Urine Glucose (UA) (Negative) Urine Ketones (Negative) 05/13/18 05/13/18 05/13/18 Range/Units 17:03 19:07 19:21 WBC (3.8-10.6) k/uL Neutrophils # (1.3-7.7) k/uL Lymphocytes # (1.0-4.8) k/uL Sodium (137-145) mmol/L Potassium (3.5-5.1) mmol/L Chloride (98-107) mmol/L Carbon Dioxide (22-30) mmol/L BUN (9-20) mg/dL Creatinine (0.66-1.25) mg/dL Glucose (74-99) mg/dL POC Glucose (mg/dL) 483 H (75-99) mg/dL Phosphorus (2.5-4.5) mg/dL Magnesium (1.6-2.3) mg/dL AST (17-59) U/L Total Creatine Kinase 34 L (55-170) U/L C-Reactive Protein (<10.0) mg/L Total Protein (6.3-8.2) g/dL Urine Glucose (UA) 4+ H (Negative) Urine Ketones 2+ H (Negative) 05/13/18 05/13/18 05/13/18 Range/Units 19:51 20:57 21:59 WBC (3.8-10.6) k/uL Neutrophils # (1.3-7.7) k/uL Lymphocytes # (1.0-4.8) k/uL Sodium (137-145) mmol/L Potassium (3.5-5.1) mmol/L Chloride (98-107) mmol/L Carbon Dioxide (22-30) mmol/L BUN (9-20) mg/dL Creatinine (0.66-1.25) mg/dL Glucose (74-99) mg/dL POC Glucose (mg/dL) 505 H 421 H 287 H (75-99) mg/dL Phosphorus (2.5-4.5) mg/dL Magnesium (1.6-2.3) mg/dL AST (17-59) U/L Total Creatine Kinase (55-170) U/L C-Reactive Protein (<10.0) mg/L Total Protein (6.3-8.2) g/dL Urine Glucose (UA) (Negative) Urine Ketones (Negative) 05/13/18 05/13/18 05/14/18 Range/Units 22:30 23:58 00:00 WBC (3.8-10.6) k/uL Neutrophils # (1.3-7.7) k/uL Lymphocytes # (1.0-4.8) k/uL Sodium (137-145) mmol/L Potassium (3.5-5.1) mmol/L Chloride 108 H (98-107) mmol/L Carbon Dioxide (22-30) mmol/L BUN 36 H (9-20) mg/dL Creatinine (0.66-1.25) mg/dL Glucose 166 H (74-99) mg/dL POC Glucose (mg/dL) 192 H 158 H (75-99) mg/dL Phosphorus 2.3 L (2.5-4.5) mg/dL Magnesium (1.6-2.3) mg/dL AST (17-59) U/L Total Creatine Kinase (55-170) U/L C-Reactive Protein (<10.0) mg/L Total Protein (6.3-8.2) g/dL Urine Glucose (UA) (Negative) Urine Ketones (Negative) 05/14/18 05/14/18 05/14/18 Range/Units 01:52 03:40 04:09 WBC (3.8-10.6) k/uL Neutrophils # (1.3-7.7) k/uL Lymphocytes # (1.0-4.8) k/uL Sodium (137-145) mmol/L Potassium (3.5-5.1) mmol/L Chloride (98-107) mmol/L Carbon Dioxide (22-30) mmol/L BUN 36 H (9-20) mg/dL Creatinine (0.66-1.25) mg/dL Glucose 199 H (74-99) mg/dL POC Glucose (mg/dL) 189 H 193 H (75-99) mg/dL Phosphorus (2.5-4.5) mg/dL Magnesium (1.6-2.3) mg/dL AST (17-59) U/L Total Creatine Kinase (55-170) U/L C-Reactive Protein (<10.0) mg/L Total Protein (6.3-8.2) g/dL Urine Glucose (UA) (Negative) Urine Ketones (Negative) 05/14/18 05/14/18 05/14/18 Range/Units 06:32 07:46 11:43 WBC (3.8-10.6) k/uL Neutrophils # (1.3-7.7) k/uL Lymphocytes # (1.0-4.8) k/uL Sodium (137-145) mmol/L Potassium (3.5-5.1) mmol/L Chloride (98-107) mmol/L Carbon Dioxide (22-30) mmol/L BUN (9-20) mg/dL Creatinine (0.66-1.25) mg/dL Glucose (74-99) mg/dL POC Glucose (mg/dL) 203 H 196 H 300 H (75-99) mg/dL Phosphorus (2.5-4.5) mg/dL Magnesium (1.6-2.3) mg/dL AST (17-59) U/L Total Creatine Kinase (55-170) U/L C-Reactive Protein (<10.0) mg/L Total Protein (6.3-8.2) g/dL Urine Glucose (UA) (Negative) Urine Ketones (Negative) Microbiology - Last 24 Hours (Table) 05/13/18 19:07 Urine Culture - Preliminary Urine,Voided Assessment and Plan Assessment: Patient is seen today as an inpatient consult. Patient states he was having increased fatigue and weakness for a few days including weakness in the lower extremity so had a visit with his PCP yesterday, May 13, who checked blood glucose which was in the 800s and was told to come to ER. Patient was found to have positive acetone and elevated blood glucose of 679 and so was admitted for mild DKA although patient has no previous diagnosis of diabetes. Patient also admits to polydipsia and polyuria as well. Patient was also found to have elevated creatinine of 1.54 as well most likely secondary to dehydration. Patient was seen in our office initially on 04/11 and followed up on 04/25. Patient initially presented with shoulder pain and stiffness in the upper extremities and weakness in the lower extremities and patient had elevated sedimentation rate of 77. Patient was started on 30 mg/2 week taper of prednisone. At his follow up, patient discussed feeling better on prednisone and patient had increased movement in the arms and improved strength as well. Patient was planned to be re-evaluated after completing prednisone taper with repeat ESR to confirm diagnosis of PMR. It was also discussed that patient may need to be evaluated by neurology for possible ALS. Patient also had degenerative disk disease of the spine and does follow with Dr. Brooks and is on gabapentin 300 mg TID. Today, patient continues to complain of fatigue. Patient does state that he did go on a trip recently but had to limit his activity because he had issues standing from kneeling position due to weakness in the calves. Patient states that he did feel worsening fatigue in the last few days. On physical exam, patient does continue to have weakness of the calves bilaterally but has good strength of proximal muscles and in the upper extremities. Today I will discontinue patient's prednisone and hopefully this improves patient's hyperglycemia. Patient will follow up in 2 weeks to discuss further plan of care and treatment of PMR if patient's ESR continues to be elevated. (1) ROMIE (acute kidney injury) Current Visit: Yes Status: Acute Code(s): N17.9 - ACUTE KIDNEY FAILURE, UNSPECIFIED SNOMED Code(s): 59347219 (2) DKA (diabetic ketoacidoses) Current Visit: Yes Status: Acute Code(s): E13.10 - OTH DIABETES MELLITUS WITH KETOACIDOSIS WITHOUT COMA SNOMED Code(s): 449699056 (3) Degeneration of lumbar intervertebral disc Current Visit: Yes Status: Chronic Code(s): M51.36 - OTHER INTERVERTEBRAL DISC DEGENERATION, LUMBAR REGION SNOMED Code(s): 59191070 (4) Hyperglycemia Current Visit: Yes Status: Acute Priority: High Code(s): R73.9 - HYPERGLYCEMIA, UNSPECIFIED SNOMED Code(s): 82043071 (5) Polyarthralgia Current Visit: Yes Status: Chronic Priority: High Code(s): M25.50 - PAIN IN UNSPECIFIED JOINT SNOMED Code(s): 04438266 (6) Weakness Current Visit: Yes Status: Chronic Priority: High Code(s): R53.1 - WEAKNESS SNOMED Code(s): 91276189 Plan: Today I will discontinue patient's prednisone and hopefully this improves patient's hyperglycemia. Patient will follow up in 2 weeks to discuss further plan of care and treatment of PMR if patient's ESR continues to be elevated.
[2018-05-14 17:00] LABS: Glucose,Whole Blood 276 mg/dL (75-99)
[2018-05-14] MEDS ORDERED: GABAPENTIN 400 MG CAP PO PRN (17:21)
[2018-05-14] MEDS: ASPIRIN 81 MG PO SCH (18:10)
[2018-05-14 20:33] LABS: Glucose,Whole Blood 321 mg/dL (75-99)
[2018-05-14 21:26] LABS: Hemoglobin A1C 13.3 % (4.0-6.0)
[2018-05-14] MEDS: LORATADINE 10 MG TAB PO SCH (21:57)
[2018-05-14] MEDS: ATORVASTATIN 20 MG TAB PO SCH (21:57)
[2018-05-15] MEDS: HEPARIN SODIUM,PORCINE 5,000 UNIT/ML 1 ML VIAL SQ SCH ×3 (00:16→17:44)
[2018-05-15 03:25] LABS: Glucose,Whole Blood 175 mg/dL (75-99)
[2018-05-15 07:26] LABS: Glucose,Whole Blood 187 mg/dL (75-99)
[2018-05-15] MEDS: INSULIN ASPART 100 UNIT/ML 1 ML 10 ML VIAL SQ SCH ×6 (08:18→22:18)
[2018-05-15] MEDS: ASPIRIN 81 MG PO SCH (08:18)
[2018-05-15] MEDS: INSULIN DETEMIR 100 UNIT/ML 10 ML VIAL SQ SCH (08:18)
[2018-05-15 08:25] LABS: HCT 39.6 % (39.0-53.0); HGB 13.4 gm/dL (13.0-17.5); MCH 29.6 pg (25.0-35.0); MCHC 33.9 g/dL (31.0-37.0); MCV 87.3 fL (80.0-100.0); Mean Platelet Volume 7.3; Platelet Count 126 k/uL (150-450); RBC 4.53 m/uL (4.30-5.90); RDW 14.8 % (11.5-15.5); WBC 6.7 k/uL (3.8-10.6)
[2018-05-15 08:38] LABS: Albumin 2.5 g/dL (3.5-5.0); Potassium 4.1 mmol/L (3.5-5.1); Total Bilirubin 0.6 mg/dL (0.2-1.3); Total Protein 4.5 g/dL (6.3-8.2)
[2018-05-15 12:27] LABS: Glucose,Whole Blood 272 mg/dL (75-99)
[2018-05-15] MEDS ORDERED: INSULIN ASPART 100 UNIT/ML 1 ML 10 ML VIAL SQ SCH (12:50)
[2018-05-15] MEDS ORDERED: predniSONE 10 MG TAB PO STA (13:51)
--- NOTE | 2018-05-15 13:56 | P.PN ---
Subjective Progress Note Date: 05/15/18 Principal diagnosis: Diabetic ketoacidosis Patient was seen and examined. Both daughters at bedside. Patient reports great improvement in symptoms. He denies headache, LE edema, N/V, fever, chills, chest pain, SOB, palpitations, changes in urination or bowel habits. Objective - Vital Signs Vital signs: Vital Signs Temp 98.8 F 05/15/18 06:12 Pulse 73 05/15/18 06:12 Resp 16 05/15/18 06:12 BP 131/78 05/15/18 06:12 Pulse Ox 97 05/15/18 06:12 Intake & Output 05/14/18 05/15/18 05/15/18 18:59 06:59 18:59 Weight 73 kg Other: Voiding Method Toilet # Voids 3 1 1 - Exam General: non toxic, no distress, appears at stated age Derm: warm, dry Head: atraumatic, normocephalic, symmetric Eyes: EOMI, no lid lag, anicteric sclera Mouth: no lip lesion, mucus membranes moist Cardiovascular: S1S2 reg, no murmur, positive posterior tibial pulse bilateral, Lungs: CTA bilateral, no rhonchi, no rales , no accessory muscle use Abdominal: soft, nontender to palpation, no guarding, no appreciable organomegaly Ext: no gross muscle atrophy, no edema, no contractures Neuro: CN II-XI grossly intact, no focal neuro deficits Psych: Alert, oriented, appropriate affect - Labs CBC & Chem 7: 05/15/18 08:06 05/15/18 08:06 Labs: Abnormal Lab Results - Last 24 Hours (Table) 05/13/18 05/14/18 05/14/18 Range/Units 17:03 16:54 20:31 Plt Count (150-450) k/uL Sodium (137-145) mmol/L Chloride (98-107) mmol/L BUN (9-20) mg/dL Glucose (74-99) mg/dL POC Glucose (mg/dL) 276 H 321 H (75-99) mg/dL Hemoglobin A1c 13.3 H (4.0-6.0) % Calcium (8.4-10.2) mg/dL Total Protein (6.3-8.2) g/dL Albumin (3.5-5.0) g/dL 05/15/18 05/15/18 05/15/18 Range/Units 03:22 07:13 08:06 Plt Count 126 L (150-450) k/uL Sodium (137-145) mmol/L Chloride (98-107) mmol/L BUN (9-20) mg/dL Glucose (74-99) mg/dL POC Glucose (mg/dL) 175 H 187 H (75-99) mg/dL Hemoglobin A1c (4.0-6.0) % Calcium (8.4-10.2) mg/dL Total Protein (6.3-8.2) g/dL Albumin (3.5-5.0) g/dL 05/15/18 05/15/18 Range/Units 08:06 12:24 Plt Count (150-450) k/uL Sodium 136 L (137-145) mmol/L Chloride 110 H (98-107) mmol/L BUN 24 H (9-20) mg/dL Glucose 223 H (74-99) mg/dL POC Glucose (mg/dL) 272 H (75-99) mg/dL Hemoglobin A1c (4.0-6.0) % Calcium 8.0 L (8.4-10.2) mg/dL Total Protein 4.5 L (6.3-8.2) g/dL Albumin 2.5 L (3.5-5.0) g/dL Microbiology - Last 24 Hours (Table) 05/13/18 19:07 Urine Culture - Final Urine,Voided Assessment and Plan Assessment: Assessment 68 year old M presents to the ED for confusion, polyuria and polydipsia. He has been following Rheumatology for possible PMR and started on Prednisone recently. Found to have hyperK, + AG, elevated BG. Admitted for DKA. Plan Hyperglycemia secondary to DM, exacerbated by medications - Initial labs showed BG 679, HCO3 20, AG 19, UA 2+ ketones, Cr 1.54. Patient was afebrile with a mild leukocytosis of 11.2. - Started on insulin drip and transitioned off 05/14. - BG ranging from 175 to 321 on Levamir 18 units QAM and SSI (16 units over 24H) . - A1c 13.3, increased from about 6 in 03/2018. Anticipate insulin requirements to decrease over time with cessation of Prednisone. - Anion gap closed, bicarbonate normalized. Will continue Levamir 18 units QAM and add Aspart 4 units TID with SS. Accuchecks QID. Hypoglycemic protocol. Fall precautions. 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 Hypertension: BP 131/78. Monitor vitals, add medication as necessary. Can start ACEi on DC. Arthritis: Concern for PMR. Rheumatology consulted - plans to DC steroids and to FU outPT. Will give Prednisone 10 mg PO x 1 today, Sunday and Sunday to taper off. FU Rheumatology outPT. Thrombocytopenia: Plt 126, drop from 240 on admission. Likely dilutional. FU CBC ROMIE: BUN 24 Cr 1.04, resolving. IVF DC'd. Encourage PO hydration. Avoid nephrotoxins. FU BMP
[2018-05-15 17:09] LABS: Glucose,Whole Blood 184 mg/dL (75-99)
[2018-05-15 20:40] LABS: Glucose,Whole Blood 276 mg/dL (75-99)
[2018-05-15 22:03] VITALS: RESP 16
[2018-05-15] MEDS: LORATADINE 10 MG TAB PO SCH (22:18)
[2018-05-15] MEDS: ATORVASTATIN 20 MG TAB PO SCH (22:18)
[2018-05-16] MEDS: HEPARIN SODIUM,PORCINE 5,000 UNIT/ML 1 ML VIAL SQ SCH ×3 (01:03→15:01)
[2018-05-16 07:22] LABS: Glucose,Whole Blood 167 mg/dL (75-99)
[2018-05-16 07:39] VITALS: BP 150/78; PULSE 64
[2018-05-16] MEDS: INSULIN ASPART 100 UNIT/ML 1 ML 10 ML VIAL SQ SCH ×3 (07:45→12:45)
[2018-05-16] MEDS: INSULIN DETEMIR 100 UNIT/ML 10 ML VIAL SQ SCH (07:46)
[2018-05-16] MEDS: ASPIRIN 81 MG PO SCH (07:47)
[2018-05-16 07:59] VITALS: TEMP 98.5
[2018-05-16 08:29] LABS: Basophils % (A) 0 %; Eosinophils % (A) 1 %; HCT 37.2 % (39.0-53.0); HGB 12.9 gm/dL (13.0-17.5); Lymphocytes # (A) 0.7 k/uL (1.0-4.8); Lymphocytes % (A) 15 %; MCH 30.3 pg (25.0-35.0); MCHC 34.7 g/dL (31.0-37.0); MCV 87.4 fL (80.0-100.0); Mean Platelet Volume 7.6; Monocytes # (A) 0.2 k/uL (0-1.0); Monocytes % (A) 4 %; Neutrophils # (A) 3.8 k/uL (1.3-7.7); Neutrophils % (A) 79 %; Platelet Count 129 k/uL (150-450); RBC 4.26 m/uL (4.30-5.90); RDW 14.6 % (11.5-15.5); WBC 4.8 k/uL (3.8-10.6)
[2018-05-16 08:30] LABS: Albumin 2.4 g/dL (3.5-5.0); Calcium 7.9 mg/dL (8.4-10.2); Potassium 3.9 mmol/L (3.5-5.1); Total Bilirubin 0.5 mg/dL (0.2-1.3); Total Protein 4.4 g/dL (6.3-8.2)
--- NOTE | 2018-05-16 09:47 | P.PN ---
Subjective Progress Note Date: 05/16/18 Principal diagnosis: Medication induced DKA Patient was seen and examined. No acute events overnight. No complaints this morning. States he is feeling well. Able to urinate freely. Last BM this morning. Daughter at bedside, answered all questions and had an extensive discussion regarding insulin and risks of hypoglycemia. Objective - Vital Signs Vital signs: Vital Signs Temp 98.5 F 05/16/18 07:59 Pulse 64 05/16/18 07:00 Resp 16 05/16/18 07:00 BP 150/78 05/16/18 07:00 Pulse Ox 98 05/16/18 07:00 Intake & Output 05/15/18 05/16/18 05/16/18 18:59 06:59 18:59 Intake Total 100 Balance 100 Intake: Oral 100 Other: Voiding Method Toilet # Voids 1 1 - Exam General: non toxic, no distress, appears at stated age Derm: warm, dry Head: atraumatic, normocephalic, symmetric Eyes: EOMI, no lid lag, anicteric sclera Mouth: no lip lesion, mucus membranes moist Cardiovascular: S1S2 reg, no murmur, positive posterior tibial pulse bilateral, Lungs: CTA bilateral, no rhonchi, no rales , no accessory muscle use Abdominal: soft, nontender to palpation, no guarding, no appreciable organomegaly Ext: no gross muscle atrophy, no edema, no contractures Neuro: CN II-XI grossly intact, no focal neuro deficits Psych: Alert, oriented, appropriate affect - Labs CBC & Chem 7: 05/16/18 07:55 05/16/18 07:55 Labs: Abnormal Lab Results - Last 24 Hours (Table) 05/15/18 05/15/18 05/15/18 Range/Units 12:24 16:50 20:33 RBC (4.30-5.90) m/uL Hgb (13.0-17.5) gm/dL Hct (39.0-53.0) % Plt Count (150-450) k/uL Lymphocytes # (1.0-4.8) k/uL Chloride (98-107) mmol/L Glucose (74-99) mg/dL POC Glucose (mg/dL) 272 H 184 H 276 H (75-99) mg/dL Calcium (8.4-10.2) mg/dL Total Protein (6.3-8.2) g/dL Albumin (3.5-5.0) g/dL 05/16/18 05/16/18 05/16/18 Range/Units 07:14 07:55 07:55 RBC 4.26 L (4.30-5.90) m/uL Hgb 12.9 L (13.0-17.5) gm/dL Hct 37.2 L (39.0-53.0) % Plt Count 129 L (150-450) k/uL Lymphocytes # 0.7 L (1.0-4.8) k/uL Chloride 112 H (98-107) mmol/L Glucose 149 H (74-99) mg/dL POC Glucose (mg/dL) 167 H (75-99) mg/dL Calcium 7.9 L (8.4-10.2) mg/dL Total Protein 4.4 L (6.3-8.2) g/dL Albumin 2.4 L (3.5-5.0) g/dL Assessment and Plan Assessment: Assessment 68 year old M presents to the ED for confusion, polyuria and polydipsia. He has been following Rheumatology for possible PMR and started on Prednisone recently. Found to have hyperK, + AG, elevated BG. Admitted for DKA. Plan Hyperglycemia secondary to DM, exacerbated by medications - Initial labs showed BG 679, HCO3 20, AG 19, UA 2+ ketones, Cr 1.54. Patient was afebrile with a mild leukocytosis of 11.2. - Started on insulin drip and transitioned off 05/14. - BG ranging from 149 to 276 on Levamir 18 units QAM, Novolog 4 units TID and SSI (10 units over 24H). - A1c 13.3, increased from about 6 in 03/2018. Anticipate insulin requirements to decrease over time with cessation of Prednisone. - Anion gap closed, bicarbonate normalized. Will continue Levamir 18 units QAM and increase Aspart to 6 units TID with meals. Accuchecks QID. Hypoglycemic protocol. Fall precautions. 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 Hypertension: BP 150/78. Start Lisinopril 5 mg PO daily. Monitor vitals, add medication as necessary. Hypocalcemia: Corrected Ca 9.2. Within normal limits. Anemia: Hg 12.9 Hct 37.2 MCV 87.4. Within normal limits on admission. Likely dilutional. Arthritis: Concern for PMR. Rheumatology consulted - plans to DC steroids and to FU outPT. Will give Prednisone 10 mg PO x 1 today, Sunday and Sunday to taper off. FU Rheumatology outPT. ASCVD risk: Continue ASA 81 mg PO daily and Lipitor 20 mg PO QHS. Thrombocytopenia: Plt 129, drop from 240 on admission. Likely dilutional. ROMIE: BUN 18 Cr 1.01, resolved. Encourage PO hydration. Patient on Gabapentin for neuropathic symptoms related to his back. Patient reports no pain but continues to take Gabapentin. I discussed with the patient and daughter the risk of sedation with Gabapentin and to DC if not needed for neuropathic pain. Also discussed symptoms of hypoglycemic and the need to check BG QID while on insulin. Advised patient that insulin requirements are likely to drop with cessation of Prednisone and to FU with PCP within 1-2 days of discharge to maintain close monitoring of insulin requirements. Patient and daughter verbalized understanding of the plan. Plans to DC today, home. Time with Patient: Greater than 30
[2018-05-16 11:55] LABS: Glucose,Whole Blood 214 mg/dL (75-99)
[2018-05-16] MEDS ORDERED: INSULIN ASPART 100 UNIT/ML 1 ML 10 ML VIAL SQ SCH (12:30)
--- NOTE | 2018-05-16 14:46 | P.DS ---
Providers Date of admission: 05/13/18 18:36 Expected date of discharge: 05/16/18 Attending physician: Kelsie Morales DO Consults: 05/13/18 19:09 Consult Physician Routine Consulting Provider: Caity Celestin Consult Reason/Comments: known Do you want consulting provider notified?: Yes Primary care physician: Andrew Grimes - Discharge Diagnosis(es) (1) Hypertension Current Visit: Yes Status: Acute (2) Hypocalcemia Current Visit: Yes Status: Acute (3) Anemia Current Visit: Yes Status: Acute (4) Thrombocytopenia Current Visit: Yes Status: Acute (5) ROMIE (acute kidney injury) Current Visit: Yes Status: Acute (6) DKA (diabetic ketoacidoses) Current Visit: Yes Status: Acute (7) Hyperglycemia Current Visit: Yes Status: Acute Priority: High (8) Polyarthralgia Current Visit: Yes Status: Chronic Priority: High Hospital Course: 68-year-old male with past medical history of hypertension initially presented to the ED for confusion, polyuria and polydipsia. Patient states he was at his primary care provider's office when it was noted that his blood sugar was around 800 and patient was advised to go to the ED. 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 Patient states that he was initially started on Prednisone 4 weeks ago at 30 mg by mouth daily for the first 2 weeks. His Prednisone dose was then decreased to 25 mg by mouth for the next 2 weeks, followed by 20 mg on . Patient reported feeling increased confusion, polyuria, polydipsia and nausea during this time which prompted him to go to his PCP's office. In the ED he was found to have a mild leukocytosis of 11.2, sodium of 131, potassium of 5.8, bicarbonate of 20, creatinine of 1.54, and a blood glucose of 679. Patient was found to be in DKA and was admitted for IV fluids and an insulin drip. His anion gap closed on day 2, and he was transitioned off the insulin drip to Levemir 18 units subcutaneously every morning, and sliding scale. Patient's insulin was titrated based on weight and was discharged on Levemir 18 units every morning and NovoLog 6 units 3 times a day with meals. Review of [facility] showed an A1c of 6.4 in March 2018. A1c during this admission was 13.3. Patient was started on diabetic diet and staff educator was consulted. Rheumatology was consulted for his polyarthritis, and the decision was made to cut down on his Prednisone. Patient was advised to take 10 mg on Sunday, 10 mg on Sunday, and 10 mg on Sunday prior to his follow-up with rheumatology outpatient. Patient was started on lisinopril for his hypertension and proteinuria. Patient was found to be anemic and thrombocytopenic during his hospitalization, but this was thought to be dilutional. Patient was found to be hypocalcemic but was within normal limits when corrected for albumin. Patient had acute kidney injury during his hospitalization which resolved by discharge. Patient was noted to be on gabapentin for neuropathic symptoms related to his back. Patient reported no pain but continued to take gabapentin in the outpatient setting. I discussed with the patient and daughter the risk of sedation with gabapentin and to discontinue it if not needed for neuropathic pain. I also discussed symptoms of hypoglycemia and the need to check blood glucose 4 times a day while on insulin. Advised patient that insulin requirements are likely to drop with cessation of prednisone and to follow-up with his primary care provider within 1-2 days of discharge to maintain close monitoring of his insulin requirements. Patient and daughter verbalized understanding of the plan. General: non toxic, no distress, appears at stated age Derm: warm, dry Head: atraumatic, normocephalic, symmetric Eyes: EOMI, no lid lag, anicteric sclera Mouth: no lip lesion, mucus membranes moist Cardiovascular: S1S2 reg, no murmur, positive posterior tibial pulse bilateral, Lungs: CTA bilateral, no rhonchi, no rales , no accessory muscle use Abdominal: soft, nontender to palpation, no guarding, no appreciable organomegaly Ext: no gross muscle atrophy, no edema, no contractures Neuro: CN II-XI grossly intact, no focal neuro deficits Psych: Alert, oriented, appropriate affect This complex discharge took greater than 30 minutes to prepare. Pertinent Studies: A1c Patient Condition at Discharge: Good Plan - Discharge Summary New Discharge Prescriptions: New Alcohol Antiseptic Pads [Alcohol Swabs] 1 each QID #120 med..pad Blood Sugar Diagnostic [Test Strips] 1 each MC QID #120 strip Lancets 1 each MC QID #120 each Syringe and Needle,Insulin,1Ml [Insulin Syringe 29G 1/2" 1ml] 1 each MC QID # 120 disp.syrin Insulin Aspart [NovoLOG Flexpen] 6 units SQ AC-TID #5 pen Insulin Detemir [Levemir Flextouch] 18 units SQ DAILY 30 Days #5 pen Continue Aspirin EC [Ecotrin Low Dose] 81 mg PO DAILY Simvastatin 40 mg PO HS Losartan [Cozaar] 50 mg PO DAILY Cetirizine HCl [Zyrtec] 10 mg PO HS predniSONE See Taper PO DIRECTED #2 tab Discontinued Gabapentin [Neurontin] 400 mg PO TID PRN PRN Reason: Pain Discharge Medication List Aspirin EC [Ecotrin Low Dose] 81 mg PO DAILY 05/13/18 [History] Cetirizine HCl [Zyrtec] 10 mg PO HS 05/14/18 [History] Losartan [Cozaar] 50 mg PO DAILY 05/14/18 [History] Simvastatin 40 mg PO HS 05/14/18 [History] Alcohol Antiseptic Pads [Alcohol Swabs] 1 each QID #120 med..pad 05/16/18 [Rx ] Blood Sugar Diagnostic [Test Strips] 1 each QID #120 strip 05/16/18 [Rx] Insulin Aspart [NovoLOG Flexpen] 6 units SQ AC-TID #5 pen 05/16/18 [Rx] Insulin Detemir [Levemir Flextouch] 18 units SQ DAILY 30 Days #5 pen 05/16/18 [ Rx] Lancets 1 each QID #120 each 05/16/18 [Rx] Syringe and Needle,Insulin,1Ml [Insulin Syringe 29G 2" 1ml] 1 each QID # 120 disp.syrin 05/16/18 [Rx] predniSONE See Taper PO DIRECTED #2 tab 05/16/18 [Rx] Follow up Appointment(s)/Referral(s): Andrew Grimes MD [Primary Care Provider] - 1-2 days Activity/Diet/Wound Care/Special Instructions: Diet: Diabetic diet Please check your blood glucose prior to adminstering insulin. If your blood glucose is < 100, do not administer insulin. Please keep a log of your blood sugars. Your insulin requirement will decrease as your Prednisone has been discontinued. Please follow up with your primary care provider to make sure you are receiving the appropriate dose of insulin. [employer] [phone] will send your glucometer and supplies and will arrive in 1-2 days, please use Free test meter until it arrives. Your account number for [employer] [facility] supply is [id number], they will automatically order your 3 month supply and send to you by mail. Discharge Disposition: HOME SELF-CARE Pending Studies Pending Results: Please follow up with your primary care provider within 1-2 days of discharge.
== END 2018-05-16 15:39 | disposition home or self-care (01) | DRG 638 ==
LOC: EC 15:18 → 4MS4W 18:36
PROVIDERS: ADMIT Internal Medicine; ATTEND Internal Medicine
DX: E09.10 Drug or chemical induced diabetes mellitus with ketoacidosis without coma (principal); E87.1 Hypo-osmolality and hyponatremia; N17.9 Acute kidney failure, unspecified; D64.9 Anemia, unspecified; D69.6 Thrombocytopenia, unspecified; D72.829 Elevated white blood cell count, unspecified; E83.51 Hypocalcemia; E86.0 Dehydration; E87.5 Hyperkalemia; I10 Essential (primary) hypertension; M13.0 Polyarthritis, unspecified; M35.3 Polymyalgia rheumatica; M51.36 Other intervertebral disc degeneration, lumbar region; T38.0X5A Adverse effect of glucocorticoids and synthetic analogues, initial encounter; Z79.4 Long term (current) use of insulin; Z79.899 Other long term (current) drug therapy; Z88.2 Allergy status to sulfonamides; Z79.82 Long term (current) use of aspirin; Z79.52 Long term (current) use of systemic steroids
CPT/HCPCS: 36415; 80051; 80053; 81003; 82009; 82550; 82553; 82565; 82947; 83036; 83735; 84100; 84443; 84484; 84520; 85025; 85027; 85652; 86140; 87086; 94760; 96360; 99285

== ENCOUNTER → 2018-05-13 | Outpatient (CLI) | payer MEDICARE ==
[2018-05-13 14:39] LABS: Basophils % (A) 0 %; Eosinophils % (A) 0 %; HCT 50.4 % (39.0-53.0); HGB 15.9 gm/dL (13.0-17.5); Lymphocytes # (A) 1.1 k/uL (1.0-4.8); Lymphocytes % (A) 10 %; MCH 28.4 pg (25.0-35.0); MCHC 31.5 g/dL (31.0-37.0); MCV 90.2 fL (80.0-100.0); Monocytes # (A) 0.3 k/uL (0-1.0); Monocytes % (A) 3 %; Neutrophils # (A) 9.2 k/uL (1.3-7.7); Neutrophils % (A) 85 %; Platelet Count 276 k/uL (150-450); RBC 5.59 m/uL (4.30-5.90); RDW 14.3 % (11.5-15.5); WBC 10.8 k/uL (3.8-10.6)
[2018-05-13 14:53] LABS: Albumin 3.8 g/dL (3.5-5.0); Calcium 9.7 mg/dL (8.4-10.2); Potassium 5.9 mmol/L (3.5-5.1); Total Bilirubin 1.1 mg/dL (0.2-1.3)
== END | disposition home or self-care (01) ==
LOC: LABWHC1 14:25
PROVIDERS: ATTEND Internal Medicine
DX: E11.65 Type 2 diabetes mellitus with hyperglycemia (principal); N18.3 Chronic kidney disease, stage 3 (moderate); E11.22 Type 2 diabetes mellitus with diabetic chronic kidney disease
CPT/HCPCS: 36415; 80053; 85025

== ENCOUNTER → 2018-07-17 | Outpatient (CLI) | payer MEDICARE | END | disposition home or self-care (01) | LOC: LABWHC1 07:32 | PROVIDERS: ATTEND Internal Medicine Rheumatology | DX: M35.3 Polymyalgia rheumatica (principal) | CPT/HCPCS: 36415; 85652; 86140 ==

== ENCOUNTER → 2018-08-26 | Outpatient (CLI) | payer MEDICARE | LOC: LABWHC1 07:40 | PROVIDERS: ATTEND Internal Medicine Rheumatology | DX: M35.3 Polymyalgia rheumatica (principal) | CPT/HCPCS: 36415; 85652; 86140 ==

== ENCOUNTER → 2018-09-25 | Outpatient (CLI) | payer MEDICARE | END | disposition home or self-care (01) | LOC: LABWHC1 06:55 | PROVIDERS: ATTEND Internal Medicine Rheumatology | DX: M35.3 Polymyalgia rheumatica (principal) | CPT/HCPCS: 36415; 85652; 86140 ==

== ENCOUNTER → 2019-03-05 | Outpatient (CLI) | payer MEDICARE | END | disposition home or self-care (01) | LOC: LABWHC1 06:49 | PROVIDERS: ATTEND Internal Medicine Rheumatology | DX: M35.3 Polymyalgia rheumatica (principal) | CPT/HCPCS: 36415; 85652; 86140 ==

== ENCOUNTER → 2019-05-28 | Outpatient (CLI) | payer MEDICARE | END | disposition home or self-care (01) | LOC: LABWHC1 06:50 | PROVIDERS: ATTEND Internal Medicine | DX: M35.3 Polymyalgia rheumatica (principal); E11.21 Type 2 diabetes mellitus with diabetic nephropathy | CPT/HCPCS: 36415; 85652; 86140 ==

== ENCOUNTER → 2019-07-02 | Outpatient (CLI) | payer MEDICARE ==
[2019-07-02 11:35] LABS: African American GFR (CKD) 54.3 (60.0-200.0); Anion Gap 7.1 mmol/L (4.00-12.00); Calcium 8.8 mg/dL (8.7-10.3); Carbon Dioxide 27.9 mmol/L (21.6-31.8); Potassium 4.3 mmol/L (3.5-5.5)
[2019-07-02 15:31] LABS: Hemoglobin A1C 5.7 % (4.0-6.0)
== END | disposition home or self-care (01) ==
LOC: LABWHC1 06:45
PROVIDERS: ATTEND Internal Medicine
DX: E11.21 Type 2 diabetes mellitus with diabetic nephropathy (principal)
CPT/HCPCS: 36415; 80048; 83036

== ENCOUNTER 2022-03-28 09:46 | Emergency (ER) | payer MEDICARE, OTHER ==
[2022-03-28 09:59] VITALS: RESP 18
[2022-03-28] MEDS ORDERED: KETOROLAC 15 MG/ML 1 ML VIAL IM STA (10:02)
[2022-03-28 10:55] LABS: Basophils % (A) 1 %; Eosinophils # (A) 0.1 k/uL (0-0.7); Eosinophils % (A) 2 %; HCT 47.4 % (39.0-53.0); HGB 15.7 gm/dL (13.0-17.5); Lymphocytes # (A) 1.6 k/uL (1.0-4.8); Lymphocytes % (A) 26 %; MCH 30.5 pg (25.0-35.0); MCHC 33.1 g/dL (31.0-37.0); MCV 92.3 fL (80.0-100.0); Mean Platelet Volume 7.4; Monocytes # (A) 0.4 k/uL (0-1.0); Monocytes % (A) 6 %; Neutrophils # (A) 4.1 k/uL (1.3-7.7); Neutrophils % (A) 65 %; Platelet Count 203 k/uL (150-450); RBC 5.13 m/uL (4.30-5.90); RDW 12.3 % (11.5-15.5); WBC 6.3 k/uL (3.8-10.6)
[2022-03-28 11:14] LABS: Albumin 4.5 g/dL (3.5-5.0); Calcium 9.1 mg/dL (8.4-10.2); Potassium 4.6 mmol/L (3.5-5.1); Total Bilirubin 0.7 mg/dL (0.2-1.3); Total Protein 7.5 g/dL (6.3-8.2)
[2022-03-28 11:15] LABS: Appearance,Urine Clear (Clear); Bilirubin,Urine Negative (Negative); Blood,Urine Negative (Negative); Color,Urine Yellow; Glucose,Urine (UA) Negative (Negative); Ketones,Urine Negative (Negative); Leukocyte Esterase,Urine Negative (Negative); Nitrite,Urine Negative (Negative); PH, Urine 5.5 (5.0-8.0); Protein,Urine Negative (Negative); Specific Gravity,Urine 1.017 (1.001-1.035); Urobilinogen,Urine <2.0 mg/dL (<2.0)
--- NOTE | 2022-03-28 11:58 | CT ---
EXAMINATION TYPE: CT abdomen pelvis w con DATE OF EXAM: 03/28/2022 COMPARISON: None available HISTORY: LLQ pain CT DLP: 1083.8 mGycm Automated exposure control for dose reduction was used. TECHNIQUE: Helical acquisition of images was performed from the lung bases through the pelvis. CONTRAST: Performed without Oral Contrast and with IV Contrast, patient injected with 80cc mL of Isovue 300. FINDINGS: LUNG BASES: No significant abnormality is appreciated. LIVER/GB: No significant abnormality is appreciated. PANCREAS: No significant abnormality is seen. SPLEEN: No significant abnormality is seen. ADRENALS: No significant abnormality is seen. KIDNEYS: Bilateral renal hypodensities likely representing renal cysts, otherwise unremarkable kidney s. FREE AIR: No free air is visualized. RETROPERITONEAL ADENOPATHY: None visualized REPRODUCTIVE ORGANS: Enlarged prostate. Unremarkable seminal vesicles. URINARY BLADDER: Not completely distended. PELVIC ADENOPATHY: No pathologically enlarged pelvic lymph nodes. OSSEOUS STRUCTURES: Degenerative changes of the lower lumbar spine. No aggressive bone lesion. BOWEL: Unremarkable nondistended stomach, duodenum and small bowel. Colonic diverticulosis most evid ent involving the sigmoid colon and descending colon. Mild acute inflammatory changes seen surroundin g the inferior aspect of the descending colon likely representing mild acute diverticulitis. No evide nce of abscess formation or perforation. Normal appendix. OTHER: Scattered arterial atherosclerotic calcification. No sizable ascites. Bilateral fat-containing inguinal hernias, larger on the left side. Fat-containing umbilical hernia. IMPRESSION: Mild acute diverticulitis involving the inferior aspect of the descending colon as described above. N o evidence of abscess formation or signs of perforation. Other findings as described above.
--- NOTE | 2022-03-28 12:27 | ED ---
Abdominal Pain HPI - General Chief Complaint: Abdominal Pain Stated Complaint: Abd pain Time Seen by Provider: 03/28/22 10:01 Source: patient, family, RN notes reviewed Mode of arrival: ambulatory Limitations: no limitations - History of Present Illness Initial Comments: This is a 72-year-old male who presents to the emergency department for left lower quadrant pain. He believes that this area of his abdomen also feels swollen. Patient states that this began yesterday, and has not changed positions. The pain is worse whenever he urinates, has a bowel movement, or moves. He is not in significant pain when sitting still. He has a history of kidney stones and diverticulitis. He is unsure when his last episode of either of these was. Last colonoscopy was 10-12 years ago. He is in the process of setting up another colonoscopy with Dr. Gómez. Denies any associated nausea or vomiting. He has not taken anything for the pain, states that he prefers to avoid medication. Denies any fevers, chills, sore throat, cough, dyspnea, chest pain, palpitations, nausea, vomiting, diarrhea, back pain, or headaches. MD Complaint: abdominal pain Onset/Timin -: days(s) Location: LLQ Consistency: intermittent Worsens With: bowel movement - Related Data Home Medications Medication Instructions Recorded Confirmed Cetirizine HCl [Zyrtec] 10 mg PO DAILY 05/14/18 03/28/22 Losartan [Cozaar] 50 mg PO DAILY 05/14/18 03/28/22 Simvastatin 40 mg PO HS 05/14/18 03/28/22 Aspirin 81 mg PO DAILY 03/28/22 03/28/22 Gabapentin 300 mg PO HS 03/28/22 03/28/22 Vitamin E (Dl,Tocopheryl Acet) 400 unit PO DAILY 03/28/22 03/28/22 [Vitamin E (400 Iu = 180 mg)] amLODIPine 5 mg PO HS 03/28/22 03/28/22 Previous Rx's Medication Instructions Recorded Amoxic-Pot Clav 875-125Mg 1 tab PO Q12HR 10 Days #20 tab 03/28/22 [Augmentin 875-125] Allergies Allergy/AdvReac Type Severity Reaction Status Date / Time Sulfa (Sulfonamide Allergy Rash/Hives Verified 03/28/22 11:58 Antibiotics) Review of Systems ROS Statement: Those systems with pertinent positive or pertinent negative responses have been documented in the HPI. ROS Other: All systems not noted in ROS Statement are negative. Past Medical History Past Medical History: Hypertension Additional Past Medical History / Comment(s): Arthritis History of Any Multi-Drug Resistant Organisms: None Reported Past Surgical History: No Surgical Hx Reported Past Psychological History: No Psychological Hx Reported Smoking Status: Never smoker Past Alcohol Use History: None Reported Past Drug Use History: None Reported - Past Family History Family Additional Family Medical History / Comment(s): Patient is adopted and doesn't know his family history General Exam Limitations: no limitations General appearance: alert, in no apparent distress Head exam: Present: atraumatic, normocephalic, normal inspection Respiratory exam: Present: normal lung sounds bilaterally. Absent: respiratory distress, wheezes, rales, rhonchi, stridor Cardiovascular Exam: Present: regular rate, normal rhythm, normal heart sounds. Absent: systolic murmur, diastolic murmur, rubs, gallop, clicks GI/Abdominal exam: Present: soft, tenderness (LLQ), normal bowel sounds, other (Mild firmness to palpation of the left lower quadrant.). Absent: distended Neurological exam: Present: alert, oriented X3, CN II-XII intact Psychiatric exam: Present: normal affect, normal mood Skin exam: Present: warm, dry, intact, normal color. Absent: rash Course Vital Signs 03/28/22 03/28/22 09:57 12:39 Temperature 97.9 F 98.4 F Pulse Rate 69 67 Respiratory 18 18 Rate Blood Pressure 155/84 154/81 O2 Sat by Pulse 97 99 Oximetry Medical Decision Making - Medical Decision Making This is a 72-year-old male who presents to the emergency department for left lower quadrant pain. Lab work and urinalysis were nonactionable. Given the patient's tenderness and somewhat fullness/swelling on examination, as well as his history of diverticulitis, will proceed with a computed tomography scan of the abdomen and pelvis. Computed tomography scan did reveal a mild acute diverticulitis without evidence of abscess formation or perforation. Patient feels comfortable with discharge home. Prescription for Augmentin sent to the pharmacy. Advised to alternate with Tylenol and ibuprofen as needed for pain relief. Also instructed him to increase his fiber intake. Return precautions reviewed in depth, the patient is instructed to return to the emergency department with any new, worsening, or concerning symptoms. Patient verbalized understanding. This case was discussed in detail with the attending ED physician. Presentation, findings, and treatment plan discussed in detail as well. - Lab Data Result diagrams: 03/28/22 10:43 03/28/22 10:43 Lab Results 03/28/22 03/28/22 03/28/22 Range/Units 10:43 10:43 10:43 WBC 6.3 (3.8-10.6) k/uL RBC 5.13 (4.30-5.90) m/uL Hgb 15.7 (13.0-17.5) gm/dL Hct 47.4 (39.0-53.0) % MCV 92.3 (80.0-100.0) fL MCH 30.5 (25.0-35.0) pg MCHC 33.1 (31.0-37.0) g/dL RDW 12.3 (11.5-15.5) % Plt Count 203 (150-450) k/uL MPV 7.4 Neutrophils % 65 % Lymphocytes % 26 % Monocytes % 6 % Eosinophils % 2 % Basophils % 1 % Neutrophils # 4.1 (1.3-7.7) k/uL Lymphocytes # 1.6 (1.0-4.8) k/uL Monocytes # 0.4 (0-1.0) k/uL Eosinophils # 0.1 (0-0.7) k/uL Basophils # 0.0 (0-0.2) k/uL Sodium 139 (137-145) mmol/L Potassium 4.6 (3.5-5.1) mmol/L Chloride 108 H (98-107) mmol/L Carbon Dioxide 22 (22-30) mmol/L Anion Gap 9 mmol/L BUN 25 H (9-20) mg/dL Creatinine 1.44 H (0.66-1.25) mg/dL Est GFR (CKD-EPI)AfAm 56 (>60 ml/min/1.73 sqM) Est GFR (CKD-EPI)NonAf 48 (>60 ml/min/1.73 sqM) Glucose 121 H (74-99) mg/dL Calcium 9.1 (8.4-10.2) mg/dL Total Bilirubin 0.7 (0.2-1.3) mg/dL AST 24 (17-59) U/L ALT 17 (4-49) U/L Alkaline Phosphatase 42 (38-126) U/L Total Protein 7.5 (6.3-8.2) g/dL Albumin 4.5 (3.5-5.0) g/dL Amylase 94 (30-110) U/L Lipase 306 H (23-300) U/L Urine Color Yellow Urine Appearance Clear (Clear) Urine pH 5.5 (5.0-8.0) Ur Specific [place] 1.017 (1.001-1.035) Urine Protein Negative (Negative) Urine Glucose (UA) Negative (Negative) Urine Ketones Negative (Negative) Urine Blood Negative (Negative) Urine Nitrite Negative (Negative) Urine Bilirubin Negative (Negative) Urine Urobilinogen <2.0 (<2.0) mg/dL Ur Leukocyte Esterase Negative (Negative) - EKG Data EKG Comments: Sinus rhythm. Ventricular rate 63 bpm, [place] interval 161 ms, QRS duration 95 ms, QTC 437 ms. - Radiology Data Radiology results: report reviewed, image reviewed Disposition Clinical Impression: Diverticulitis Disposition: HOME SELF-CARE Additional Instructions: Return to the emergency department with any new, worsening, or concerning symptoms. Take the Augmentin as prescribed for 10 days. Alternate with Tylenol and ibuprofen as needed for pain relief. Be sure to eat plenty of fiber. Follow through with your colonoscopy as advised. Prescriptions: Amoxic-Pot Clav 875-125Mg [Augmentin 875-125] 1 tab PO Q12HR 10 Days #20 tab Is patient prescribed a controlled substance at d/c from ED?: No [facility] - 1-2 days
[2022-03-28 12:40] VITALS: BP 154/81; PULSE 67; TEMP 98.4
== END 2022-03-28 12:40 | disposition home or self-care (01) ==
LOC: EC 09:46
DX: K57.32 Diverticulitis of large intestine without perforation or abscess without bleeding (principal); I10 Essential (primary) hypertension; M19.90 Unspecified osteoarthritis, unspecified site; Z79.82 Long term (current) use of aspirin; Z79.899 Other long term (current) drug therapy
CPT/HCPCS: 36415; 80053; 82150; 83690; 85025; 81003; 74177; 99284; Q9967

== ENCOUNTER 2022-05-12 09:15 | Day surgery (SDC) | payer MEDICARE, OTHER ==
[2022-05-11 08:38] VITALS: BMI 27.4
[~2022-05-12 09:15] MED LIST: LACTATED RINGERS 1,000 ML IV SCH; LIDOCAINE 1% (10MG/ML) FOR IV START INTRADERMA PRN
[2022-05-12 09:40] VITALS: TEMP 98
[2022-05-12 09:51] LABS: Glucose,Whole Blood 113 mg/dL (70-110)
[2022-05-12] MEDS ORDERED: LACTATED RINGERS 1,000 ML IV ONE ×2 (09:51)
[2022-05-12] MEDS ORDERED: PROPOFOL 10 MG/ML 20 ML VIAL IV ONE (10:44)
--- NOTE | 2022-05-12 11:04 | P.PCN ---
Date of Procedure: 05/12/22 Procedure(s) Performed: BRIEF HISTORY: Patient is a 72-year-old pleasant white scheduled for an elective colonoscopy as a part of screening for colorectal neoplasia. PROCEDURE PERFORMED: Colonoscopy with snare polypectomy. PREOPERATIVE DIAGNOSIS: Screening for colon cancer. IV sedation per Anesthesia. PROCEDURE: After informed consent was obtained, the patient, was brought into the endoscopy unit. IV sedation was administered by Anesthesia under continuous monitoring. Digital rectal examination was normal. Initially the Olympus CF-160 flexible video colonoscope was then inserted in the rectum, gradually advanced into the cecum without any difficulty. Careful examination was performed as the scope was gradually being withdrawn. Ileocecal valve and the appendiceal orifice were visualized and appeared normal. Prep was fair. There was sticky still noted in the base of the cecum that was irrigated. Mucosa of the cecum, ascending colon appeared normal. Transverse colon there was a 5 mm and 6 mm polyps removed by snare polypectomy. Rest of the, transverse colon, descending colon, sigmoid colon, and rectum appeared normal. Scattered sigmoid diverticula seen. Retroflexion was performed in the rectum and small internal hemorrhoids were seen. The patient tolerated the procedure well. IMPRESSION: 5 mm and 6 mm transverse colon polyp serous posterior polypectomy Scattered sigmoid diverticulosis Grade 2 internal hemorrhoids RECOMMENDATIONS: Findings of this examination were discussed with the patient as well as his family. He was advised to follow with the biopsy results. If the biopsy reveals adenoma he can have a repeat colonoscopy in 5 years..
[2022-05-12] MEDS ORDERED: IV FLUID CONTINUATION 1,000 ML IV ONE (11:07)
[2022-05-12 11:12] VITALS: PULSE 64
[2022-05-12 11:30] VITALS: BP 160/79; RESP 18
== END 2022-05-12 11:45 | disposition home or self-care (01) ==
LOC: ORWHC2ENDO 09:15
PROVIDERS: ATTEND Internal Medicine Gastroenterology
DX: Z12.11 Encounter for screening for malignant neoplasm of colon (principal); D12.3 Benign neoplasm of transverse colon; K57.30 Diverticulosis of large intestine without perforation or abscess without bleeding; K64.1 Second degree hemorrhoids; E11.69 Type 2 diabetes mellitus with other specified complication; E78.5 Hyperlipidemia, unspecified; I12.9 Hypertensive chronic kidney disease with stage 1 through stage 4 chronic kidney disease, or unspecified chronic kidney disease; E11.22 Type 2 diabetes mellitus with diabetic chronic kidney disease; N18.9 Chronic kidney disease, unspecified; Z88.2 Allergy status to sulfonamides; M35.3 Polymyalgia rheumatica; Z79.899 Other long term (current) drug therapy; Z79.82 Long term (current) use of aspirin
CPT/HCPCS: 88305; 45385; J2704

== ENCOUNTER → 2024-03-26 | Outpatient (CLI) | payer OTHER ==
--- NOTE | 2024-03-26 15:48 | US ---
EXAMINATION TYPE: US Aorta Screening DATE OF EXAM: 03/26/2024 COMPARISON: CT 03/28/22 CLINICAL INDICATION: Male, 74 years old with history of Z13.6 SCREEN CARDIOVASCULAR DISEASE; TECHNIQUE: Multiple sonographic images of the abdominal aorta are obtained. 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
== END | disposition home or self-care (01) ==
LOC: RADUSWWP 08:39
PROVIDERS: ATTEND Social Worker Clinical
DX: Z13.6 Encounter for screening for cardiovascular disorders (principal)
CPT/HCPCS: 76706